=== PATIENT | male | born 1995 | race Hispanic/Latino ===

== ENCOUNTER 2017-05-14 16:44 | Emergency (ER) | payer SELFPAY ==
[~2017-05-14] VITALS: Ht 182.9 cm; Wt 113.4 kg
[2017-05-14 17:43] LABS: BASOPHILS % 0.4 % (0.0-1.0); EOSINOPHILS # (AUTO) 0.1 (0.0-0.4); EOSINOPHILS % 0.9 % (0.0-6.0); HEMATOCRIT 47.3 % (38.2-49.6); HEMOGLOBIN 16.4 g/dL (14.0-18.0); LYMPHOCYTES # (AUTO) 2.3 (1.0-3.2); LYMPHOCYTES % 23.4 % (18.0-39.1); MEAN CORPUSCULAR HEMOGLOBIN 30.8 pg (28-32); MEAN CORPUSCULAR HGB CONC 34.7 g/dL (31-35); MEAN CORPUSCULAR VOLUME 88.7 fL (81-99); MONOCYTES # (AUTO) 1.2 (0.2-0.8); MONOCYTES % 12.1 % (4.4-11.3); NEUTROPHILS # (AUTO) 6.1 (2.1-6.9); NEUTROPHILS % 63.1 % (38.7-80.0); PLATELET COUNT 344 x10e3/uL (140-360); RED BLOOD COUNT 5.33 x10e6/uL (4.3-5.7)
[2017-05-14 17:53] LABS: ANION GAP 15.4 mmol/L (8-16); BLOOD UREA NITROGEN 7 mg/dL (7-26); BUN/CREATININE RATIO 7 (6-25); CALCIUM 9.3 mg/dL (8.4-10.2); CARBON DIOXIDE 29 mmol/L (22-29); CHLORIDE 104 mmol/L (98-107); CREATININE, SERUM 1.06 mg/dL (0.72-1.25); EST GLOMERULAR FILTRATION RATE > 60 ML/MIN (60-); GLUCOSE 68 mg/dL (74-118); POTASSIUM 3.4 mmol/L (3.5-5.1); SODIUM 145 mmol/L (136-145)
--- NOTE | 2017-05-14 18:09 | Diagnostic Imaging Report ---
EXAMINATION: LOWER LEG LEFT 05/14/2017 4:52 PM COMPARISON: None INDICATION: Possible blood clot, leg pain, swelling, erythema DISCUSSION: 2 views of the left lower leg No fracture or dislocation. Joint spaces are maintained. Soft tissues are unremarkable IMPRESSION: No acute radiographic abnormality of the left lower leg Emre Beverly MD Signed by: Dr. Emre Beverly M.D. on 05/14/2017 6:05 PM
== END 2017-05-14 18:38 | disposition home or self-care (01) ==
LOC: ER 16:44
DX: M79.662 Pain in left lower leg (principal); L03.116 Cellulitis of left lower limb; R26.2 Difficulty in walking, not elsewhere classified
CPT/HCPCS: 36415; 80048; 85025; 93971; 99284